=== PATIENT | female | born 1955 | race Caucasian/White ===

== ENCOUNTER 2018-12-21 12:42 | Emergency (ER) | payer MEDICARE, OTHER ==
[~2018-12-21] VITALS: Ht 172.7 cm; Wt 131.8 kg
[2018-12-21] MEDS ORDERED: GABA-529 PO (13:22)
[2018-12-21] MEDS ORDERED: ARIP2 PO (13:22)
[2018-12-21] MEDS ORDERED: BUPR100 PO (13:22)
[2018-12-21 13:30] LABS: GLUCOSE,POINT OF CARE 113 MG/DL (70-110)
[2018-12-21 14:04] LABS: BASOPHILS % (AUTO) 1.5 % (0.0-2.0); EOSINOPHILS % (AUTO) 3.1 % (1.0-6.0); HEMATOCRIT 38.4 % (36-46); HEMOGLOBIN 12.8 g/dL (12.0-16.0); LYMPHOCYTES # (AUTO) 2.9 K/uL (1.0-4.8); LYMPHOCYTES % (AUTO) 33.4 % (22.0-44.0); MEAN CORPUSCULAR HEMOGLOBIN 29.9 pg (26.0-34.0); MEAN CORPUSCULAR HGB CONC 33.4 G/dL (31.0-37.0); MEAN CORPUSCULAR VOLUME 89 fL (80-100); MONOCYTES # (AUTO) 0.6 K/uL (0.1-1.0); MONOCYTES % (AUTO) 7.1 % (2.0-9.0); NEUTROPHILS # (AUTO) 4.8 K/uL (1.8-7.7); NEUTROPHILS % (AUTO) 54.9 % (40.0-70.0); PLATELET COUNT (AUTO) 341 K/uL (150-450); RED CELL DISTRIBUTION WIDTH 14.3 % (11.5-14.5)
[2018-12-21 14:12] LABS: CALCIUM, TOTAL 9.2 mg/dL (8.8-10.5); CREATININE 1.05 mg/dL (0.60-1.30); POTASSIUM 4.2 mmol/L (3.5-5.1)
[2018-12-21 14:18] LABS: ALBUMIN 3.4 g/dL (3.4-5.0); BILIRUBIN,TOTAL 0.3 mg/dL (0.1-1.0)
[2018-12-21 14:59] VITALS: BP 127/77
== END 2018-12-21 15:47 | disposition home or self-care (01) ==
LOC: EMS 12:45
DX: R03.0 Elevated blood-pressure reading, without diagnosis of hypertension (principal); E11.9 Type 2 diabetes mellitus without complications; E78.00 Pure hypercholesterolemia, unspecified; F32.9 Major depressive disorder, single episode, unspecified; M19.90 Unspecified osteoarthritis, unspecified site; Z90.49 Acquired absence of other specified parts of digestive tract; Z88.2 Allergy status to sulfonamides
CPT/HCPCS: 93005

== ENCOUNTER 2019-02-09 11:33 | Emergency (ER) | payer MEDICARE, OTHER ==
[~2019-02-09] VITALS: Ht 172.7 cm; Wt 137.4 kg
[~2019-02-09 11:33] MED LIST: ARIP2 PO; BUPR100 PO; GABA-529 PO
[2019-02-09] MEDS ORDERED: WARF1 PO (11:47)
[2019-02-09] MEDS ORDERED: KETOROLAC TROMETHAMINE 30 MG/ML VIAL IVP ONE (12:00)
[2019-02-09] MEDS ORDERED: ACETAMINOPHEN/CODEINE 300-30 MG TABLET PO ONE (16:00)
[2019-02-09 16:54] VITALS: BP 144/87
== END 2019-02-09 17:00 | disposition home or self-care (01) ==
LOC: EMS 11:33
DX: S42.291A Other displaced fracture of upper end of right humerus, initial encounter for closed fracture (principal); Z88.2 Allergy status to sulfonamides; Z79.01 Long term (current) use of anticoagulants; Z79.899 Other long term (current) drug therapy; W01.198A Fall on same level from slipping, tripping and stumbling with subsequent striking against other object, initial encounter; Y93.89 Activity, other specified; Y92.89 Other specified places as the place of occurrence of the external cause; Y99.8 Other external cause status
CPT/HCPCS: 71045; 73030; 73060; 96374; 99283; J1885; 29240

== ENCOUNTER 2020-03-27 11:55 | Emergency (ER) | payer MEDICARE, MEDICAID ==
[~2020-03-27] VITALS: Ht 167.6 cm; Wt 104.5 kg
[~2020-03-27 11:55] MED LIST changes: +GABA-1216 PO; -GABA-529 PO; +WARF1TAB9 PO
[2020-03-27 12:25] LABS: GLUCOSE,POINT OF CARE 151 MG/DL (70-110)
[2020-03-27] MEDS ORDERED: ARIP10TA8 PO (12:26)
[2020-03-27] MEDS ORDERED: GABA-1181 PO (12:26)
[2020-03-27] MEDS ORDERED: MIRT-89 PO (12:26)
[2020-03-27] MEDS ORDERED: GEMF600T5 PO (12:26)
[2020-03-27] MEDS ORDERED: APIX2.5T PO (12:26)
[2020-03-27] MEDS ORDERED: BUPR100 PO (12:26)
[2020-03-27] MEDS ORDERED: METF-960 PO (12:26)
[2020-03-27] MEDS ORDERED: CHOL210P PO (12:26)
[2020-03-27] MEDS ORDERED: VENL-193 PO (12:26)
[2020-03-27] MEDS ORDERED: VENL150T PO (12:27)
[2020-03-27 13:46] LABS: BASOPHILS % (AUTO) 1.3 % (0.0-2.0); EOSINOPHILS % (AUTO) 4.8 % (1.0-6.0); HEMATOCRIT 35.7 % (36-46); HEMOGLOBIN 11.9 g/dL (12.0-16.0); LYMPHOCYTES # (AUTO) 1.8 K/uL (1.0-4.8); LYMPHOCYTES % (AUTO) 19.3 % (22.0-44.0); MEAN CORPUSCULAR HEMOGLOBIN 31.9 pg (26.0-34.0); MEAN CORPUSCULAR HGB CONC 33.5 G/dL (31.0-37.0); MEAN CORPUSCULAR VOLUME 95 fL (80-100); MONOCYTES # (AUTO) 0.8 K/uL (0.1-1.0); MONOCYTES % (AUTO) 8.3 % (2.0-9.0); NEUTROPHILS # (AUTO) 6.1 K/uL (1.8-7.7); NEUTROPHILS % (AUTO) 66.3 % (40.0-70.0); PLATELET COUNT (AUTO) 317 K/uL (150-450); RED BLOOD CELL COUNT(AUTO) 3.74 MIL/uL (4.00-5.20); RED CELL DISTRIBUTION WIDTH 13.8 % (11.5-14.5)
[2020-03-27 14:01] LABS: CALCIUM, TOTAL 9.7 mg/dL (8.8-10.5); CREATININE 1.19 mg/dL (0.60-1.30); POTASSIUM 4.7 mmol/L (3.5-5.1)
[2020-03-27 14:11] LABS: ALBUMIN 3.4 g/dL (3.4-5.0); BILIRUBIN,TOTAL 0.2 mg/dL (0.1-1.0); TOTAL PROTEIN, SERUM 7.7 g/dL (6.4-8.2)
[2020-03-27] MEDS ORDERED: IBUPROFEN 600 MG TABLET PO ONE (15:30)
[2020-03-27 15:36] VITALS: BP 107/71
== END 2020-03-27 15:43 | disposition home or self-care (01) ==
LOC: EMS 11:56
DX: I87.8 Other specified disorders of veins (principal); J40 Bronchitis, not specified as acute or chronic; L30.9 Dermatitis, unspecified; M54.5 Low back pain; F32.9 Major depressive disorder, single episode, unspecified; E11.9 Type 2 diabetes mellitus without complications; E78.00 Pure hypercholesterolemia, unspecified; Z20.828 Contact with and (suspected) exposure to other viral communicable diseases; Z90.89 Acquired absence of other organs; Z88.1 Allergy status to other antibiotic agents; Z79.84 Long term (current) use of oral hypoglycemic drugs
CPT/HCPCS: 72170; 87426; 36415-L1; 36415-TC; 71045-TC